=== PATIENT | female | born 1965 | race Caucasian/White ===

== ENCOUNTER 2019-09-06 17:39 | Emergency (ER) | payer BC ==
[2019-09-06] MEDS ORDERED: ASPIRIN 81 MG TABLET, CHEWABLE PO ONE (17:59)
--- NOTE | 2019-09-06 18:01 | ER Document Report ---
ED Medical Screen (RME) - General Chief Complaint: Chest Pain > 30 Stated Complaint: CHEST PAIN,ARMS FEEL NUMB Time Seen by Provider: 09/06/19 17:55 TRAVEL OUTSIDE OF THE [place] IN LAST 30 DAYS: No - HPI Notes: 09/06/19 18:00 54-year-old female presents emergency room for complaints of substernal chest pain that woke her up this morning at 1 AM lasted for approximately 20 minutes, sharp and stabbing then resolved. Patient had another episode of chest pain while she was napping at 5 PM tonight while at rest, reports that chest pain was sharp and stabbing lasted for approximately an hour and still present, reports numbness and tingling down bilateral arms but mostly to the right shoulder. Patient is half a pack a day smoker for over 30 years. Does not take a baby aspirin. Denies cardiac history of mom or dad side. States she does have hyperlipidemia and GERD. Denies prior cardiac history. I have greeted and performed a rapid initial assessment of this patient. A comprehensive ED assessment and evaluation of the patient, analysis of test results and completion of the medical decision making process will be conducted by additional ED providers. PHYSICAL EXAMINATION: GENERAL: Well-appearing, well-nourished and in no acute distress. HEAD: Atraumatic, normocephalic. EYES: Pupils equal round extraocular movements intact, conjunctiva are normal. NECK: Normal range of motion CV: s1, s2 regular. Unable to reproduce chest pain on palpation LUNGS: No respiratory distress Musculoskeletal: Normal range of motion NEUROLOGICAL: Normal speech, normal gait. SKIN: Warm, Dry, normal turgor, no rashes or lesions noted. - Related Data Allergies/Adverse Reactions: No Known Allergies Allergy (Unverified 09/06/19 17:58) Home Medications: gabapentin. statin. PPI Physical Exam - Vital signs Vitals: Temp Pulse Resp BP Pulse Ox 98 F 70 18 118/65 97 09/06/19 17:49 09/06/19 17:49 09/06/19 17:49 09/06/19 17:49 09/06/19 17:49 Course - Vital Signs Vital signs: Temp Pulse Resp BP Pulse Ox 98 F 70 18 118/65 97 09/06/19 17:49 09/06/19 17:49 09/06/19 17:49 09/06/19 17:49 09/06/19 17:49
[2019-09-06 18:41] LABS: ABSOLUTE BASOPHILS # (AUTO) 0.1 10^3/uL (0.0-0.2); ABSOLUTE EOSINOPHILS # (AUTO) 0.1 10^3/uL (0.0-0.6); ABSOLUTE LYMPHOCYTES (AUTO) 2.7 10^3/uL (0.5-4.7); ABSOLUTE MONOCYTES (AUTO) 0.4 10^3/uL (0.1-1.4); ABSOLUTE NEUT (AUTO) 3.6 10^3/uL (1.7-8.2); BASOPHILS % (AUTO) 1.4 % (0-2); EOSINOPHILS % (AUTO) 1.2 % (0-6); HEMATOCRIT 44.9 % (36.0-47.0); HEMOGLOBIN 15.4 g/dL (12.0-15.5); LYMPHOCYTES % (AUTO) 39.6 % (13-45); MEAN CORPUSCULAR HEMOGLOBIN 31.5 pg (27.0-33.4); MEAN CORPUSCULAR HGB CONC 34.2 g/dL (32.0-36.0); MEAN CORPUSCULAR VOLUME 92 fl (80-97); MONOCYTES % (AUTO) 5.3 % (3-13); PLATELET COUNT 258 10^3/uL (150-450); RED BLOOD COUNT 4.88 10^6/uL (3.72-5.28); RED CELL DISTRIBUTION WIDTH 13.7 % (11.5-14.0); SEGMENTED NEUTROPHILS % (AUTO) 52.5 % (42-78); TOTAL CELLS COUNTED % (AUTO) 100 %; WHITE BLOOD COUNT 6.8 10^3/uL (4.0-10.5)
--- NOTE | 2019-09-06 18:53 | RADIOLOGY REPORT (SQ) ---
EXAM DESCRIPTION: CHEST 2 VIEWS COMPLETED DATE/TIME: 09/06/2019 6:24 pm REASON FOR STUDY: CP COMPARISON: None. EXAM PARAMETERS: NUMBER OF VIEWS: two views TECHNIQUE: Digital Frontal and Lateral radiographic views of the chest acquired. RADIATION DOSE: NA LIMITATIONS: none FINDINGS: LUNGS AND PLEURA: No opacities, masses or pneumothorax. No pleural effusion. MEDIASTINUM AND HILAR STRUCTURES: No masses or contour abnormalities. HEART AND VASCULAR STRUCTURES: Heart normal size. No evidence for failure. BONES: No acute findings. HARDWARE: None in the chest. OTHER: No other significant finding. IMPRESSION: NO ACUTE RADIOGRAPHIC FINDING IN THE CHEST. TECHNICAL DOCUMENTATION: JOB ID: [id number] [employer]- All Rights Reserved Reading location - IP/workstation name: [email or web address]
[2019-09-06 18:59] LABS: ALBUMIN 4.2 g/dL (3.5-5.0); ALKALINE PHOSPHATASE 89 U/L (38-126); ANION GAP 7 (5-19); ASPARTATE AMINO TRANSFERASE 24 U/L (14-36); BILIRUBIN,TOTAL 0.5 mg/dL (0.2-1.3); BLOOD UREA NITROGEN 13 mg/dL (7-20); CALCIUM 9.4 mg/dL (8.4-10.2); CARBON DIOXIDE 26 mmol/L (22-30); CHLORIDE 106 mmol/L (98-107); CREATINE KINASE 30 U/L (30-135); GLUCOSE 93 mg/dL (75-110); POTASSIUM 4.5 mmol/L (3.6-5.0); TOTAL PROTEIN 6.9 g/dL (6.3-8.2)
[2019-09-06 19:10] LABS: CREATINE KINASE MB 0.51 ng/mL (<4.55)
[2019-09-06 19:20] LABS: TROPONIN I < 0.012 ng/mL
--- NOTE | 2019-09-06 21:38 | ER Document Report ---
ED General - General Chief Complaint: Chest Pain > 30 Stated Complaint: CHEST PAIN,ARMS FEEL NUMB Time Seen by Provider: 09/06/19 17:55 Primary Care Provider: MADDISON VIEIRA MD [ACTIVE STAFF] - Follow up in 1 week ANGIE ESTRADA MD [Primary Care Provider] - Follow up in 3-5 days Notes: 54-year-old female with history of hyperlipidemia and chronic smoker presents with intermittent chest pain since his early this morning at 1 AM. Patient states that 1 AM she woke up from sleep with central chest pain that radiated behind her right shoulder blade and states it lasted approximately 20 minutes. Patient states she had a second episode around 5 PM tonight that woke her up from a nap that lasted approximately 1 hour. Patient states she is also had intermittent numbness/tingling in her bilateral arms today. Patient states associated dyspnea. Denies nausea/vomiting, dizziness, syncope/near syncope. Patient denies any history of hypertension or diabetes. Patient denies any family history of cardiac disease. Patient denies any personal history of cardiac disease. Patient states she recently traveled to [place] by plane and returned last Thursday. Patient denies any recent hospitalizations, recent surgeries, personal history of cancer, estrogen or control use, or family history of any PE or DVT. Patient states she also has been having bilateral ear pain, nasal congestion, dry coughing since last Thursday. Patient denies any fever currently. Patient states her ear pain is worse in the left. TRAVEL OUTSIDE OF THE [place] IN LAST 30 DAYS: No - Related Data Allergies/Adverse Reactions: No Known Allergies Allergy (Unverified 09/06/19 17:58) Home Medications: gabapentin. statin. PPI Past Medical History - Social History Smoking Status: Current Every Day Smoker Family History: None Patient has suicidal ideation: No Patient has homicidal ideation: No Review of Systems - Review of Systems Notes: Constitutional: Negative for fever. HENT: Positive for ear pain, nasal congestion, and nonproductive cough. Negative for sore throat. Eyes: Negative for visual changes. Cardiovascular: Positive for chest pain. Respiratory: Positive for shortness of breath. Gastrointestinal: Negative for abdominal pain, vomiting or diarrhea. Genitourinary: Negative for dysuria. Musculoskeletal: Negative for back pain. Skin: Negative for rash. Neurological: Negative for headaches, weakness or numbness. 10 point ROS negative except as marked above and in HPI. Physical Exam - Vital signs Vitals: Temp Pulse Resp BP Pulse Ox 98 F 70 18 118/65 97 09/06/19 17:49 09/06/19 17:49 09/06/19 17:49 09/06/19 17:49 09/06/19 17:49 - Notes Notes: GENERAL: Well-appearing, well-nourished and in no acute distress. HEAD: Atraumatic, normocephalic. EYES: Extraocular movements intact, sclera anicteric, conjunctiva are normal. ENT: TMs normal, nares patent, nasal congestion, oropharynx clear without exudates. Moist mucous membranes. No trismus. Uvula midline without edema. No STREET FLUSHER DRIVER. No muffled voice. NECK: Normal range of motion, supple without lymphadenopathy or JVD. LUNGS: Breath sounds clear to auscultation bilaterally and equal. No wheezes rales or rhonchi. HEART: Regular rate and rhythm without murmurs, rubs or gallops. EXTREMITIES: Normal range of motion, no pitting or edema. No clubbing or cyanosis. NEUROLOGICAL: Cranial nerves II through XII grossly intact. Normal speech, normal gait. PSYCH: Normal mood, normal affect. SKIN: Warm, Dry, normal turgor, no rashes or lesions noted. Course - Re-evaluation Re-evalutation: 09/06/19 #1 Chest Pain: Presentation of chest pain in an otherwise well appearing patient. Low clinical suspicion for ACS given clinical history, exam, EKG without ST elevations or depressions, and negative initial troponin. HEART score 2. PE also seems unlikely given clinical history, absence of tachycardia or dyspnea. D-dimer added on due to recent long distance travel history. CXR without evidence of pneumothorax or pneumonia. No widened mediastinum. Aortic dissection also seems unlikely given history, symmetric pulses, CXR, and vitals. HEART Score: 2 D dimer was elevated. CTA chest was ordered which is negative for PE. Chest pain in a patient without evidence of cardiac or other serious etiology on workup today. I discussed with patient that, based on their age, risk factors and emergency department testing today, the likelihood that their symptoms are related to a heart attack is very low (estimated risk of heart attack or over the next 30 days of less than 1%). The patient demonstrates decision making capacity and has verbalized an understanding of these risks to me. Based on this, the patient has chosen to follow-up as an outpatient. Usual chest pain return precautions reviewed. The patient states understanding and agreement with this plan. #2 URI: Appears consistent with viral URI. Will treat with symptomatic me dications. Return precautions given. - Vital Signs Vital signs: Temp Pulse Resp BP Pulse Ox 98 F 70 18 118/65 97 09/06/19 17:49 09/06/19 17:49 09/06/19 17:49 09/06/19 17:49 09/06/19 17:49 - Laboratory Result Diagrams: 09/06/19 18:29 09/06/19 18:29 Laboratory results interpreted by me: 09/06/19 18:29 D-Dimer 0.73 H Discharge - Discharge Clinical Impression: Viral URI with cough Chest pain Qualifiers: Chest pain type: unspecified Qualified Code(s): R07.9 - Chest pain, unspecified Condition: Stable Disposition: HOME, SELF-CARE Instructions: Chest Pain of Unclear Cause ([facility]), Upper Respiratory Illness ([facility]) Additional Instructions: Your CT chest did not show any blood clots. You were seen today for chest pain. The exact cause of your pain is unclear. However, based on your cardiac enzyme testing, chest x-ray, and EKG it does not appear that it is from an immediately life-threatening cause at this time. Although your testing here is normal is critical that you follow-up with your primary care physician for continued evaluation of this chest pain and possible stress testing. I recommended you see your physician within the next 24-48 hours to be evaluated for consideration of a stress test. Please return to emergency department immediately if you have worsening of your chest pain, shortness of breath, vomiting, become unable to exert yourself due to pain or difficulty breathing, you pass out, or have any pain that radiates into your arms, jaw, or back. Please also return if you have any additional symptoms that are concerning to you. For your nasal congestion/URI symptoms, please take medication as prescribed. Return to ER for any worsening symptoms, including fever, inability to open your mouth, muffled voice, or any other symptoms that are concerning to you. Prescriptions: Fexofenadine/Pseudoephedrine [Valery-D 24 Hour Tablet] 1 each PO DAILY #20 tab.er.24h Fluticasone Propionate [Flonase Nasal [place] 50 Mcg/[place] 16 gm] 2 sprays NASL Q 12 #1 inhaler Referrals: ANGIE ESTRADA MD [Primary Care Provider] - Follow up in 3-5 days MADDISON VIEIRA MD [ACTIVE STAFF] - Follow up in 1 week
--- NOTE | 2019-09-06 23:02 | RADIOLOGY REPORT (SQ) ---
EXAM DESCRIPTION: CT CHEST ANGIOGRAPHY WITHOUT THEN WITH IV CONTRAST COMPLETED DATE/TME: 09/06/2019 21:38 CLINICAL HISTORY: 54 years Female, elevated d dimer(0.73), cp/dyspnea, recent long travel Comparison: CR, same day. Technique: IV contrast. Coronal and sagittal reformat. 3d reconstruction. This exam was performed according to our departmental dose-optimization program, which includes automated exposure control, adjustment of the mA and/or kV according to patient size and/or use of iterative reconstruction technique.[facility]: Dose Right [facility]: CareDose [facility]: Dose Right [facility]: Teradose 4D [facility]: ThisLife LIMITATIONS: None Findings: No pulmonary embolus. No right ventricular strain. Atelectasis/scar. 0.3 cm left nephrolithiasis or post excretion contrast partially imaged. Inferior neck, axillae, mediastinum, airway, lymphatics, heart, vasculature, upper abdomen, and musculoskeleton appear otherwise unremarkable. Impression: No pulmonary embolus. No acute cardiopulmonary findings.
[2019-09-07 00:10] VITALS: BP 100/66
--- NOTE | 2019-09-07 14:30 | EKG REPORT ---
SEVERITY:- BORDERLINE ECG - SINUS RHYTHM BORDERLINE R WAVE PROGRESSION, ANTERIOR LEADS : Confirmed by: Minerva Khan 07-Sep-2019 14:29:27
== END 2019-09-06 23:30 | disposition home or self-care (01) ==
LOC: ER 17:39
DX: J06.9 Acute upper respiratory infection, unspecified (principal); B97.89 Other viral agents as the cause of diseases classified elsewhere; R07.9 Chest pain, unspecified; R20.0 Anesthesia of skin; M25.511 Pain in right shoulder; R06.00 Dyspnea, unspecified; H92.03 Otalgia, bilateral; R09.81 Nasal congestion; R05 Cough; R06.02 Shortness of breath
CPT/HCPCS: 36415; 71046; 71275; 80053; 82550; 82553; 84484; 85025; 85379; 93005; 93010; 99285